=== PATIENT | female | born 1955 | race African-American/Black ===

== ENCOUNTER → 2017-12-07 | Outpatient (CLI) | payer OTHER ==
[~2017-12-07] MED LIST: DEXILANT60 MG PO; LANTUS100 UNIT/1 SL; NOVOLOG; PROCARDIA XL60 MG PO; Z CARDIZEM CD; Z.0.ACTOS15 MG PO; Z.0.AMITRIPTYLINE H7; Z.0.COREG25 MG PO; Z.0.DIOVAN HCT 1601; Z.0.GLUCOPHAGE1000 M PO; Z.0.HUMALOG100 UNIT/; Z.0.LANTUS100 UNIT/1; Z.0.NITROSTAT0.4 MG; Z.0.PLAVIX75 MG; Z.0.SIMVASTATIN20 MG
== END ==
LOC: MAMMO 07:26
PROVIDERS: ATTEND Internal Medicine
DX: Z12.31 Encounter for screening mammogram for malignant neoplasm of breast (principal)
CPT/HCPCS: 77067

== ENCOUNTER → 2018-12-21 | Outpatient (CLI) | payer OTHER ==
--- NOTE | 2018-12-21 08:04 | Diagnostic Imaging Report ---
EXAMINATION: CHEST 2 VIEWS INDICATION: Cough/wheezing COMPARISON: None FINDINGS: PA and lateral views TUBES and LINES: None. LUNGS: Lungs are well inflated. Lungs are clear. There is mild prominence of the central pulmonary vasculature, consistent with pulmonary venous congestion. PLEURA: Trace fluid in the minor fissure. No pneumothorax. HEART AND MEDIASTINUM: The cardiomediastinal silhouette size is within normal limits. Aortic arch calcifications. BONES AND SOFT TISSUES: No acute osseous lesion. Soft tissues are unremarkable. Degenerative changes in the thoracic spine. UPPER ABDOMEN: No free air under the diaphragm. IMPRESSION: Central pulmonary vascular congestion. Signed by: Tres Hope DO on 12/21/2018 8:01 AM
== END ==
LOC: RAD 07:03
PROVIDERS: ATTEND Internal Medicine
DX: R05 Cough (principal); R06.2 Wheezing
CPT/HCPCS: 71046